=== PATIENT | male | born 1975 | race Caucasian/White ===

== ENCOUNTER 2016-07-16 08:37 | Day surgery (SDC) | payer BC, OTHER ==
[~2016-07-16] VITALS: Ht 182.9 cm; Wt 111.7 kg
[2016-07-16] VITALS (11 sets, daily range): BP systolic 100–150; BP diastolic 69–92; PULSE 58–82; RESP 13–24; Ht 182.9 cm; Wt 111.7 kg
[2016-07-16] MEDS ORDERED: SOD CHLORIDE 0.9% 1,000 ML IV SCH (10:30)
[2016-07-16] MEDS ORDERED: CEFAZOLIN 2 GM/50 ML (PMX) 50 ML IVPB ONE (10:30)
[2016-07-16] MEDS ORDERED: BUPIVACAINE 0.25% (MPF) 10 ML 10 ML VIAL ONE (10:39)
[2016-07-16] MEDS ORDERED: MIDAZOLAM 1 MG/ML 2 ML INJ ONE (10:53)
[2016-07-16] MEDS ORDERED: LIDOCAINE 2% (SDV) 5 ML INJ ONE (10:53)
[2016-07-16] MEDS ORDERED: SUCCINYLCHOLINE CHLORIDE 100 MG/5 ML SYG IV ONE (10:53)
[2016-07-16] MEDS ORDERED: PROPOFOL 20 ML ONE ×2 (10:53→11:07)
[2016-07-16] MEDS ORDERED: FENTAnyl 50 MCG/ML VIAL ONE ×3 (10:53→11:59)
[2016-07-16] MEDS ORDERED: ONDANSETRON 4 MG INJ ONE (11:01)
[2016-07-16] MEDS ORDERED: ROCURONIUM 50 MG INJ ONE (11:01)
[2016-07-16] MEDS ORDERED: CEFAZOLIN 1 GM INJ ONE (11:01)
[2016-07-16] MEDS ORDERED: METOCLOPRAMIDE 10 MG INJ ONE (11:01)
[2016-07-16] MEDS ORDERED: POLYMYXIN/BACITRACIN 1L IRRIG IRR ONE (11:21)
[2016-07-16] MEDS ORDERED: GLYCOPYRROLATE 0.4 MG INJ ONE (11:27)
[2016-07-16] MEDS ORDERED: NEOSTIGMINE 3 MG/3 ML SYRINGE ONE (11:27)
[2016-07-16] MEDS ORDERED: MEPERIDINE 25 MG INJ IV PRN (11:30)
[2016-07-16] MEDS ORDERED: PROCHLORPERAZINE 10 MG INJ IV PRN (11:30)
[2016-07-16] MEDS ORDERED: ONDANSETRON 4 MG INJ IV PRN (11:30)
[2016-07-16] MEDS ORDERED: HYDROmorphONE (0.2 MG/ML) 10ML SYG IV PRN ×2 (11:30)
[2016-07-16] MEDS ORDERED: OXYCODONE/ACETAMINOPHEN (5/325) TAB PO PRN ×2 (11:30)
[2016-07-16] MEDS ORDERED: KETOROLAC 30 MG INJ IV ONE (11:30)
[2016-07-16] MEDS ORDERED: DIPHENHYDRAMINE 50 MG INJ IV PRN (11:30)
--- NOTE | 2016-07-16 11:50 | OPR ---
Date/Time of Note Date/Time of Note DATE: 07/16/16 TIME: 11:49 Operative Report Procedure Date: Jul 16, 2016 Preoperative Diagnosis incarcerated ventral hernia Postoperative Diagnosis same Operation Performed lap incarcerated ventral hernia repair intraabdominal mesh implantation Surgeon: Ghada PATE G. SEONG Jul 16, 2016 11:50
[2016-07-16] MEDS ORDERED: MEPERIDINE 25 MG INJ ONE (11:59)
[2016-07-16] MEDS ORDERED: ACETAMINOPHEN/CODEINE #3 TAB PO ONE (12:00)
--- NOTE | 2016-07-16 12:09 | OPR ---
DATE OF OPERATION: 07/16/2016 INDICATION: This is a 40-year-old male with incarcerated ventral hernia. He requests surgical repa ir. Risks, alternatives, benefits, and personnel were discussed with patient. Patient expressed un derstanding and consents to the operation. PREOPERATIVE DIAGNOSIS: Incarcerated ventral hernia. POSTOPERATIVE DIAGNOSIS: Incarcerated ventral hernia. OPERATIONS: 1. Laparoscopic incarcerated ventral hernia repair, CPT code 69561. 2. Implantation of mesh, CPT code 37111. SURGEON: Cherri Josue MD SPECIMEN: None. COMPLICATIONS: None. ANESTHESIA: General. PROCEDURE: The patient was taken to the OR and prepped and draped in the usual sterile fashion. Dillon rgical timeout was performed. IV antibiotics were given. Left upper quadrant 5 mm incision was mad e transversely with a 15 blade. Using a 5 mm optical trocar, optical entry was performed. Pneumope ritoneum was established. Left flank 12 mm optical trocar and left lower quadrant 5 mm optical troc ars were placed under direct visualization. Upon initial inspection, there was an incarcerated vent ral hernia. This was reduced laparoscopically with laparoscopic Harmonic saqib. The hernia conten ts are excised and retracted through the 12 mm port. The hernia defect was identified and closed wi th #1 Prolene using Endoclose and laparoscopic techniques. A 10 x [address] mesh was pre pared by placing #1 Prolene sutures on each of the 4 corners in the superior and inferior and latera l areas. This mesh was then implanted into the abdomen. Small incisions superior and inferior and on both lateral sides of the hernia are made with a 15 blade. Endo Close was used to retrieve each of the 4 corners and tied to the abdominal wall. SecureStrap was used to affix the rest of the mesh against the anterior abdominal wall. The sutures were all tied down. Skin was closed with skin st aples. Local anesthesia was injected to all sites. Dry dressings were applied. Dictated By: CHERRI VELEZ/CHERYL Conf#: [id number] DID#: [id number]
[2016-07-16] MEDS: FENTAnyl 50 MCG/ML VIAL IV PRN ×4 (12:15→12:40)
== END 2016-07-16 13:55 | disposition home or self-care (01) ==
LOC: SDS 08:37
PROVIDERS: ATTEND Surgery
DX: K43.6 Other and unspecified ventral hernia with obstruction, without gangrene (principal); I12.9 Hypertensive chronic kidney disease with stage 1 through stage 4 chronic kidney disease, or unspecified chronic kidney disease; N18.9 Chronic kidney disease, unspecified; F17.200 Nicotine dependence, unspecified, uncomplicated
CPT/HCPCS: 49653; C1781; J0690; J1885; J2175; J2250; J2405; J2710; J2765; J3010; J7999

== ENCOUNTER 2016-07-19 08:04 | Emergency (ER) | payer BC ==
[~2016-07-19] VITALS: Wt 81.8 kg
[2016-07-19] MEDS ORDERED: NA PHOSPHATE/BIPHOS 133 ML ENEMA PR ONE (08:30)
[2016-07-19] MEDS ORDERED: MAGNESIUM CITRATE 300 ML BTL PO ONE (08:30)
--- NOTE | 2016-07-19 08:45 | ERD ---
ER Documentation Chief Complaint Date/Time DATE: 07/19/16 TIME: 08:43 Chief Complaint constipation x3 days s/p hernia sx HPI 40-year-old male who is postop day 3 from incarcerated ventral hernia repair comes emergency room complaining of constipation. Patient states that he is ready tried taking magnesium citrate, did not have any bowel movement however does have the urge and reports rectal pressure. He states that he does have a positive history of flatulence, patient reports that his abdomen was gaseous after the surgery and has decreased since then. He denies any fevers or chills , nausea or vomiting. Patient's other surgeries include low back surgery, vasectomy and tendon repair on the left wrist. Patient reports that he is taking Tylenol #3 for pain. ROS All systems reviewed and are negative except as per history of present illness. Medications Home Meds Active Scripts Docusate Sodium* (Colace*) 100 Mg Capsule, 100 MG PO TID, #30 CAP Prov:GLENN OCONNOR PA-C 07/19/16 Allergies Allergies: Coded Allergies: No Known Drug Allergies (Unverified Allergy, Unknown, 07/15/16) acetaminophen (Verified Adverse Reaction, Intermediate, HEADACHES, STOMACH PAIN, 07/16/16) hydrocodone (Verified Adverse Reaction, Intermediate, HEADACHES, STOMACH PAIN, 07/16/16) PMhx/Soc History of Surgery: Yes Anesthesia Reaction: No Hx Neurological Disorder: No Hx Respiratory Disorders: No Hx Cardiac Disorders: No Hx Psychiatric Problems: No Hx Miscellaneous Medical Probl: No Hx Alcohol Use: Yes (WEEKENDS SOCIAL) Hx Substance Use: No Hx Tobacco Use: Yes (15 CIGS PER DAY) Smoking Status: Current every day smoker Physical Exam Vitals Vital Signs Date Time Temp Pulse Resp B/P Pulse Ox O2 Delivery O2 Flow Rate FiO2 07/19/16 08:12 97.8 68 20 133/86 99 Physical Exam General: Well-developed, well-nourished. The patient appears in no acute distress. HEENT: Head is normocephalic, atraumatic. No scleral icterus. Neck: Supple. Nontender. Lungs: Clear to auscultation. Normal air movement. Heart: Regular rate and rhythm. S1 and S2 are normal. No murmurs, gallops, or rubs. Abdomen: Soft, nontender, nondistended. Bowel sounds are normoactive and present in all 4 quadrants. [place] are intact in the abdomen, there is no dehiscence or erythema. Extremities: No clubbing or cyanosis. Normal pulses. Moving extremities x 4. No weakness. Neurologic: Alert and oriented 3. No focal deficits. Skin: Normal turgor. No rash or lesions. Results 24 hrs Current Medications Medications (Trade) Dose Ordered Sig/Camille Route PRN Reason Start Time Stop Time Status Last Admin Dose Admin Magnesium Citrate (Citroma) 300 ml ONCE ONCE PO 07/19/16 08:30 07/19/16 08:31 DC 07/19/16 08:39 Sodium Biphosphate/ Sodium Phosphate (Fleet Enema) 133 ml ONCE ONCE SC 07/19/16 08:30 07/19/16 08:31 DC 07/19/16 08:39 Procedures/MDM ED course: Patient was given magnesium citrate, Fleet enema was administered. He was observed in the emergency department and reports that he had a large bowel movement, that was nonbloody. Patient also reports significant improvement of his pain. MDM: 40-year-old male comes in status post ventral hernia repair, complaining of constipation for the past 3 days. Patient comes in with constipation after surgery, he reports rectal pain with an urge to defecate however the magnesium citrate at home was not working. On examination his abdomen is soft, he does have active bowel sounds in all quadrants and reports positive flatulence at home. Differential diagnosis of bowel obstruction was considered however unlikely as he also was given an enema and has had significant relief of his symptoms. He reports to be feeling much better at this time is stable to be discharged home. The case was reviewed and discussed with Dr. Ashraf who agrees with the plan of care including labs, treatment, and advanced imaging as appropriate. Departure Diagnosis: Primary Impression: Constipation Condition: GLENN Marie PA-C Jul 19, 2016 08:45
[2016-07-19] MEDS ORDERED: DOCU-144 PO (09:12)
== END 2016-07-19 09:20 | disposition home or self-care (01) ==
LOC: FTE 08:04
DX: K59.00 Constipation, unspecified (principal); F17.210 Nicotine dependence, cigarettes, uncomplicated
CPT/HCPCS: 99283

== ENCOUNTER 2018-06-12 18:49 | Emergency (ER) | payer BC ==
[~2018-06-12] VITALS: Ht 180.3 cm; Wt 164.0 kg
[~2018-06-12 18:49] MED LIST: DOCU-144 PO
[2018-06-12 19:31] VITALS: Ht 180.3 cm; Wt 164.0 kg
[2018-06-12] MEDS ORDERED: HYDROmorphONE 1 MG/ML SYG IV STA (20:45)
[2018-06-12] MEDS ORDERED: SOD CHLORIDE 0.9% 1,000 ML IV STA (20:45)
[2018-06-12] MEDS ORDERED: ONDANSETRON 4 MG INJ IV STA (20:45)
[2018-06-12] MEDS ORDERED: IOHEXOL 300MG/ML 150 ML BTL ONE ×2 (21:54→22:39)
[2018-06-12] MEDS ORDERED: SOD CHLORIDE 0.9% 100 ML ONE (21:54)
[2018-06-12] MEDS ORDERED: IBUP-1542 PO (23:07)
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
[2018-06-13] VITALS: BP 127/93; PULSE 77; RESP 20
[2018-06-14] MEDS ORDERED: MUPI22OI2 TOP (14:16)
== END 2018-06-13 00:38 | disposition home or self-care (01) ==
LOC: E/R 18:49
DX: S40.811A Abrasion of right upper arm, initial encounter (principal); F17.210 Nicotine dependence, cigarettes, uncomplicated; R07.81 Pleurodynia; V29.40XA Motorcycle driver injured in collision with unspecified motor vehicles in traffic accident, initial encounter
CPT/HCPCS: 70450; 71045; 71260; 72125; 73090; 74177; 80053; 83690; 85025; 93005; J1170; J2405; J7030; Q9967; 36415; 96374; 96375

== ENCOUNTER 2018-06-14 12:36 | Emergency (ER) | payer BC ==
[~2018-06-14] VITALS: Ht 193 cm; Wt 120.0 kg
[~2018-06-14 12:36] MED LIST changes: +IBUP-1542 PO
[2018-06-14 12:48] VITALS: BP 125/74; PULSE 97; RESP 18; Ht 193 cm; Wt 120.0 kg
[2018-06-14] MEDS ORDERED: MUPIROCIN 2% 22 GM OINT TOP ONE (13:30)
[2018-06-14] MEDS ORDERED: MUPI22OI2 TOP (14:16)
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
== END 2018-06-14 14:29 | disposition left against medical advice (07) ==
LOC: FTE 12:36
DX: Z48.01 Encounter for change or removal of surgical wound dressing (principal); Z87.891 Personal history of nicotine dependence
CPT/HCPCS: 99283